=== PATIENT | male | born 1960 | race Caucasian/White ===

== ENCOUNTER 2017-02-02 10:26 | Day surgery (SDC) | payer OTHER ==
[2016-04-25 08:26] VITALS: BMI 26.5
[2017-02-02] MEDS ORDERED: Lactated Ringer's 1,000 ML IV ONE (11:25)
[2017-02-02] MEDS ORDERED: Propofol 10 mg/ml Inj (20 ML) ONE (11:29)
[2017-02-02] MEDS ORDERED: Lidocaine 2% Inj (20ml) ONE (11:30)
--- NOTE | 2017-02-02 11:32 | CP.SDSHP ---
Same Day Surgery H & P - History Proposed Procedure: EGD Pre-Op Diagnosis: SEE NOTES - Previous Medical/Surgical History Pain: 4.Moderate Pain - Allergies Allergies: Allergies No Known Allergies Allergy (Verified 02/02/17 11:11) - Physical Exam General Appearance: N Vital Signs: Vital Signs 02/02/17 10:55 Temperature 97 F L Pulse Rate 72 Respiratory 19 Rate Blood Pressure 120/82 O2 Sat by Pulse 98 Oximetry Neuro: WNL Heart: WNL Lungs: WNL GI: Other - {Optional Preform as Required} Breast: WNL Abdomen: Other Rectal: WNL Integument: WNL : WNL Ortho: WNL ENT: WNL - Impression Pt. Evaluated Today:Candidate for Anesthesia & Procedure: Yes - Date & Time Time: 11:32 Short Stay Discharge - Short Stay Discharge Admitting Diagnosis/Reason for Visit: DYSPHAGIA, PHARYNGOESOPHAGEAL PHASE Disposition: HOME/ ROUTINE
[2017-02-02] MEDS ORDERED: Belladonna-Phenobarbital PO ONE (11:55)
[2017-02-02] MEDS ORDERED: Sucralfate 1 gm/10 ml Oral Susp UD PO ONE (11:55)
[2017-02-02 13:18] VITALS: TEMP 98; O2SAT 100
[2017-02-02 13:25] VITALS: BP 106/62; PULSE 66; RESP 17
== END 2017-02-02 13:05 | disposition home or self-care (01) ==
LOC: C.ENDO 10:26
PROVIDERS: ATTEND Specialist
DX: K21.0 Gastro-esophageal reflux disease with esophagitis (principal); K22.2 Esophageal obstruction
CPT/HCPCS: 43235; C1726; J2704; J7120

== ENCOUNTER 2017-03-16 08:12 | Day surgery (SDC) | payer OTHER ==
[2017-03-16 08:48] VITALS: BMI 29.2
[2017-03-16] MEDS ORDERED: Propofol 10 mg/ml Inj (20 ML) ONE (09:19)
[2017-03-16] MEDS ORDERED: Lactated Ringer's 500 ML IV ONE ×2 (09:20)
[2017-03-16] MEDS ORDERED: Belladonna-Phenobarbital PO STA (09:20)
--- NOTE | 2017-03-16 09:20 | CP.SDSHP ---
Same Day Surgery H & P - History Proposed Procedure: EGD Pre-Op Diagnosis: SEE NOTES - Previous Medical/Surgical History Misc: Other Pain: 4.Moderate Pain - Allergies Allergies: Allergies No Known Allergies Allergy (Verified 03/16/17 08:49) - Physical Exam General Appearance: N Vital Signs: Vital Signs 03/16/17 08:31 Temperature 98.6 F Pulse Rate 89 Respiratory 16 Rate Blood Pressure 151/79 H O2 Sat by Pulse 100 Oximetry Mental Status: Alert & Oriented x3 Neuro: WNL Heart: WNL Lungs: WNL GI: Other - {Optional Preform as Required} Breast: WNL Abdomen: Other Rectal: Other Integument: WNL : WNL Ortho: WNL ENT: WNL - Impression Pt. Evaluated Today:Candidate for Anesthesia & Procedure: Yes - Date & Time Time: 09:20 Short Stay Discharge - Short Stay Discharge Admitting Diagnosis/Reason for Visit: DYSPHAGIA, PHARYNGOESOPHAGEAL PHASE Disposition: HOME/ ROUTINE
[2017-03-16 09:56] VITALS: TEMP 98.8
[2017-03-16 10:31] VITALS: BP 130/84; PULSE 72; RESP 18; O2SAT 99
== END 2017-03-16 10:50 | disposition home or self-care (01) ==
LOC: C.SDS 08:12 → C.ENDO 08:12
PROVIDERS: ATTEND Specialist
DX: R13.14 Dysphagia, pharyngoesophageal phase (principal); K21.0 Gastro-esophageal reflux disease with esophagitis; K44.9 Diaphragmatic hernia without obstruction or gangrene; K22.2 Esophageal obstruction
CPT/HCPCS: 43239; 88305; J2001; J2704; J7120

== ENCOUNTER 2017-03-29 07:07 | Day surgery (SDC) | payer OTHER ==
[2017-03-29 07:23] VITALS: BMI 26.6
[2017-03-29] MEDS ORDERED: Lactated Ringer's 1,000 ML IV ONE (08:00)
[2017-03-29] MEDS ORDERED: Propofol 10 mg/ml Inj (20 ML) ONE (08:00)
--- NOTE | 2017-03-29 08:00 | CP.SDSHP ---
Same Day Surgery H & P - History Proposed Procedure: EGD/ DILATION Pre-Op Diagnosis: SEE NOTES - Previous Medical/Surgical History Pain: 4.Moderate Pain Previous Surgical History: EGD/DILAT. DUE TO STRIC. - Allergies Allergies: Allergies No Known Allergies Allergy (Verified 03/16/17 08:49) - Physical Exam General Appearance: N Vital Signs: Vital Signs 03/29/17 07:22 Temperature 97.3 F L Pulse Rate 80 Respiratory 20 Rate Blood Pressure 118/73 O2 Sat by Pulse 98 Oximetry Mental Status: Alert & Oriented x3 Neuro: WNL Lungs: WNL GI: Other - {Optional Preform as Required} Breast: WNL Abdomen: Other Rectal: WNL Integument: WNL : WNL Ortho: WNL ENT: WNL - Impression Pt. Evaluated Today:Candidate for Anesthesia & Procedure: Yes - Date & Time Time: 08:00 Short Stay Discharge - Short Stay Discharge Admitting Diagnosis/Reason for Visit: DYSPHAGIA Disposition: HOME/ ROUTINE
[2017-03-29] MEDS ORDERED: metroNIDAZOLE IV 500 mg/100 ml 500 MG/100 ML BAG IVPB STA (08:14)
[2017-03-29] MEDS ORDERED: Sucralfate 1 gm/10 ml Oral Susp UD PO ONE (08:35)
[2017-03-29] MEDS ORDERED: Pantoprazole 40 mg EC Tab PO ONE (08:45)
[2017-03-29 09:59] VITALS: BP 99/60; PULSE 69; RESP 17; TEMP 97.3; O2SAT 98
== END 2017-03-29 09:35 | disposition home or self-care (01) ==
LOC: C.SDS 07:07
PROVIDERS: ATTEND Specialist
DX: K22.2 Esophageal obstruction (principal); K21.0 Gastro-esophageal reflux disease with esophagitis; K44.9 Diaphragmatic hernia without obstruction or gangrene; R13.10 Dysphagia, unspecified
CPT/HCPCS: 43249; C1726; J2765; J7120